=== PATIENT | female | born 1955 | race Caucasian/White ===

== ENCOUNTER 2021-02-15 08:39 | Emergency (ER) | payer BC ==
[~2021-02-15] VITALS: Ht 154.9 cm; Wt 79.5 kg
[2021-02-15 09:25] VITALS: BP 131/70
[2021-02-15] MEDS ORDERED: CEPH500T PO (09:33)
--- NOTE | 2021-02-15 09:33 | PHYS DOC ---
General Adult EDM: Chief Complaint: BLOOD IN URINE HPI: HPI: 65-year-old female presents with hematuria. She started to have urinary frequency and dysuria 2 days ago but started taking Azo. Her symptoms seem to be improving but today she has manju blood in her urine. She has frequency and urgency today. She denies any abdominal or flank pain. No fever or chills at home. She has had urinary tract infections in the past, but never had hematuria. No smoking history. No history of kidney stones. She has no other complaints at this time. Review of Systems: Review of Systems: Constitutional: Denies fever or chills Eyes: Denies change in visual acuity HENT: Denies nasal congestion or sore throat Respiratory: Denies cough or shortness of breath Cardiovascular: Denies chest pain or edema GI: Denies abdominal pain, nausea, vomiting, bloody stools or diarrhea : Dysuria, hematuria. Musculoskeletal: Denies back pain or joint pain Integument: Denies rash Neurologic: Denies headache, focal weakness or sensory changes Endocrine: Denies polyuria or polydipsia Lymphatic: Denies swollen glands Psychiatric: Denies depression or anxiety Physical Exam: PE: Constitutional: Well developed, well nourished, obese, no acute distress, non- toxic appearance. [] HENT: Normocephalic, atraumatic, bilateral external ears normal, oropharynx moist, no oral exudates, nose normal. [] Eyes: PERRLA, EOMI, conjunctiva normal, no discharge. [] Neck: Normal range of motion, no tenderness, supple, no stridor. [] Cardiovascular: Heart rate regular rhythm, no murmur [] Lungs & Thorax: Bilateral breath sounds clear to auscultation [] Abdomen: Bowel sounds normal, soft, no tenderness, no masses, no pulsatile masses. [] Skin: Warm, dry, no erythema, no rash. [] Back: No tenderness, no CVA tenderness. [] Extremities: No tenderness, no cyanosis, no clubbing, ROM intact, no edema. [] Neurologic: Alert and oriented X 3, normal motor function, normal sensory function, no focal deficits noted. [] Psychologic: Affect normal, judgement normal, mood normal. [] EKG: EKG: [] Radiology/Procedures: Radiology/Procedures: [] Heart Score: C/O Chest Pain: N/A Risk Factors: Risk Factors: DM, Current or recent (<one month) smoker, HTN, HLP, family h istory of CAD, obesity. Risk Scores: Score 0 - 3: 2.5% MACE over next 6 weeks - Discharge Home Score 4 - 6: 20.3% MACE over next 6 weeks - Admit for Clinical Observation Score 7 - 10: 72.7% MACE over next 6 weeks - Early Invasive Strategies Course & Med Decision Making: Course & Med Decision Making Pertinent Labs and Imaging studies reviewed. (See chart for details) The patient urinalysis is very bloody. Between this and the use of Azo, we may not get accurate urinalysis. I am going going to treat the patient for urinary tract infection with Keflex. Of also advised that she follow-up in 1 to 2 weeks with her primary physician for repeat urinalysis to make sure the hematuria has cleared up. If it does not she seek urology consult. She is stable for discharge at this time. [] Jatinder Disclaimer: Jatinder Disclaimer: This electronic medical record was generated, in whole or in part, using a voice recognition dictation system. Departure Departure: Impression: Primary Impression: Hematuria Disposition: HOME / SELF CARE / HOMELESS Condition: STABLE Referrals: BUDDY DIOP MD (PCP) Patient Instructions: Urinary Tract Infection, [id number] Scripts Cephalexin (CEPHALEXIN) 500 Mg Tablet 1 TAB PO TID for UTI for 7 Days, #21 TAB Prov: NITA VUONG DO 02/15/21 NITA VUONG DO Feb 15, 2021 09:33
[2021-02-15 09:52] LABS: BACTERIA,URINE 0 /HPF (0-FEW); CLARITY,URINE BLOODY; COLOR,URINE RED; RBC,URINE TNTC /HPF (0-2); SQUAMOUS EPITHELIAL CELL,UR OCC /LPF; WBC,URINE OCC /HPF (0-4)
== END 2021-02-15 09:48 | disposition home or self-care (01) ==
LOC: ER 08:39
DX: R31.9 Hematuria, unspecified (principal); R30.0 Dysuria; N39.0 Urinary tract infection, site not specified
CPT/HCPCS: 81001; 99283-25